=== PATIENT | female | born 1990 | race African-American/Black ===

== ENCOUNTER 2017-02-12 10:36 | Inpatient (IN) ==
[2017-02-12] MEDS ORDERED: ONDANSETRON 4 MG/2 ML VIAL IV PRN (10:44)
[2017-02-12] MEDS ORDERED: OXYTOCIN/LR 20 UNIT/1,000 ML BAG IV SCH (11:00)
[2017-02-12] MEDS ORDERED: LACTATED RINGERS 1,000 ML IV SCH ×2 (11:00→11:30)
[2017-02-12] MEDS: AMPICILLIN INJ 2,000 MG in SODIUM CHLORIDE 0.9% 100 ML IV SCH ×2 (11:07→22:28)
[2017-02-12 11:15] LABS: Basophils % 0.3 % (0.0-0.8); Eosinophils # 0.2 10*3/uL (0.0-0.87); Eosinophils % 1.2 % (0.00-10.9); Hematocrit 35.9 VOL% (35.7-47.0); Hemoglobin 12.5 GM/DL (12.0-16.0); Immature Granulocytes % 1.4 %; Immature Granulocytes Absolute 0.19 #; Lymphocytes % 14.6 % (21.3-54.2); Mean Corpuscular HGB Conc 34.8 GM/DL (32-36); Mean Corpuscular Hemoglobin 32 PG (27-34); Mean Corpuscular Volume 91.3 FL (87-102); Mean Platelet Volume 9.2 FL (9.6-12.0); Monocytes # 0.6 10*3/uL (0.11-0.8); Monocytes % 4.5 % (1.7-12.7); Neutrophils # 10.8 10*3/uL (1.4-7.4); Platelet Count 271 T/CUMM (130-400); Red Blood Count 3.93 MC/CUMM (3.8-5.5); Red Cell Distribution Width 13.3 % (9.3-17.3); White Blood Count 13.8 T/CUMM (4-12)
[2017-02-12] MEDS ORDERED: ONDANSETRON 4 MG/2 ML VIAL IV ONE (11:15)
[2017-02-12] MEDS ORDERED: ePHEDrine 50 MG/ML AMP IV PRN (11:15)
[2017-02-12] MEDS ORDERED: hydrOXYzine HCL 25 MG/1 ML VIAL IM PRN (11:15)
[2017-02-12] MEDS ORDERED: fentaNYL 2 MCG/ROPIV 0.2% EPID 150 ML EPIDURAL SCH (11:15)
[2017-02-12] MEDS ORDERED: CITRIC ACID/SODIUM CITRATE 30 ML UDCUP PO ONE (11:15)
[2017-02-12] MEDS ORDERED: diphenhydrAMINE 50 MG/1 ML VIAL IV PRN ×2 (11:15)
[2017-02-12] MEDS ORDERED: PROMETHAZINE 25 MG/1 ML VIAL IM ONE (11:15)
[2017-02-12] MEDS ORDERED: FAMOTIDINE 20 MG/2 ML VIAL IV ONE (11:15)
[2017-02-12] MEDS ORDERED: LACTATED RINGERS 1,000 ML IV ONE (11:26)
[2017-02-12] MEDS ORDERED: ONDANSETRON 4 MG/2 ML VIAL ONE (11:37)
[2017-02-12] MEDS ORDERED: LIDOCAINE 2% 5 ML VIAL ONE (11:37)
[2017-02-12 11:47] LABS: Albumin 2.9 G/DL (3.4-5.0); Bilirubin,Total 0.4 MG/DL (0.2-1.0); Calcium 8.9 MG/DL (8.5-10.1); Osmolality,Calculated 271.8 MOS/KG (273-304); Potassium 3.9 MMOL/L (3.5-5.1); Total Protein 6.6 G/DL (6.4-8.3)
[2017-02-12 14:07] LABS: Apearance,Urine CLEAR (Clear); Bilirubin,Urine Negative (Negative); Blood, Urine Small mg/dL (Negative); Glucose,Urine (UA) Negative (Negative); Ketones,Urine Negative (Negative); Nitrite,Urine Negative (Negative); Protein,Urine Negative; RBC,Urine <1 /HPF (0-4); Squamous Epithelial Cell,Urine Occasional /HPF (0-10); Urine Color Straw (Yellow); Urine Specific Gravity 1.008 (1.001-1.035); Urine Urobilinogen < 2.0 EU/DL (0.2-1.0); WBC,Urine 1 /HPF (0-6)
[2017-02-12 14:09] LABS: Cord Arterial Blood HCO3 16.2 MMOL/L
[2017-02-12 14:12] LABS: Cord Venous Blood HCO3 19.2 MMOL/L; Cord Venous Blood PCO2 49.5 MMHG; Cord Venous Blood PO2 33.7
--- NOTE | 2017-02-12 14:45 | Anesthesia Post-Op ---
Anesthesia Post OP - Post Ansesthetic Evaluation Patient seen in post op: Yes Resp: within normal limits CV: within normal limits Mental: within normal limits Temp: within normal limits Seqm-[id number]-Pdacfpasm: within normal limits Nausea and Vomiting: within normal limits Pain: within normal limits
[2017-02-12] MEDS ORDERED: MORPHINE 10 MG/10 ML VIAL ONE (14:48)
[2017-02-12] MEDS ORDERED: OXYTOCIN/LR 20 UNIT/1,000 ML BAG IV ONE ×2 (16:32→17:24)
--- NOTE | 2017-02-12 17:17 | Event Note ---
The pt was sent into the hospital in labor. AROM of clear fluid was performed. The infant started having some variables adn she progressed to 8 cms. Internal monitors were inserted, IUPC and FSE. The variables continued and at that point I decided to call an emergent . R/B/A/C were reviewed with the pt prior to the procedure and she was agreable. The pt was taken back for a due to nonreassuring tracing.
--- NOTE | 2017-02-12 17:21 | Operative Note ---
Date of procedure: 02/12/17 Pre-op diagnosis: IUP at 38 weeks, nonreasuring tracing Post-op diagnosis: same Procedure: emergency primary findings; Infant female, OP presentation , nuchal x 1, apgars 7 and 8, weight 5 pound 8 ounces normal uterus tubes and ovaries The patient presented to the hospital at 7 cm and progressed to 8 cm after having an epidural. Once the patient was placed on the monitor she was having a mild variables but as time went on the variables got deeper with each contraction and it that point it was decided to consent for an emergency C- section. Risks benefits alternatives and complications were reviewed with the patient the patient was amenable to the procedure. The patient was thus taken back to the operating room and epidural anesthesia was found to be adequate. Patient was prepped and draped in the usual sterile fashion. A Pfannenstiel skin incision was made with the scalpel and carried out to the underlying fascia. The fascia was incised in the midline and extended laterally with Velazquez scissors. The superior aspect of the fascial incision was dissected off the rectus muscle the same was done with the inferior aspect of the fascial incision. The rectus muscle was divided in the midline the peritoneum identified and entered sharply with Metzenbaum scissors extended superiorly and in fairly with good visualization of the bladder. The Kobe retractor was carefully introduced to the abdomen the vesicouterine peritoneum identified and entered sharply with Metzenbaum scissors extended laterally and the bladder flap was created digitally. Lower uterine segment was incised with a scalpel and extended laterally. The infant's head was noted to be OP presentation and even flex back some with careful maneuvers the infant's head was delivered atraumatically at the nuchal cord was reduced and the rest of the was then delivered the cord was clamped and cut and the was handed off to the waiting nursery team. The cord was collected to send off her gases. The placenta was then removed manually the uterus cleared of all clots and debris with a clean dry sponge. The lower uterine segment was repaired using 0 Vicryl in a running locked fashion with a second indicating layer to achieve excellent hemostasis. The Kobe retractor was then removed the ovaries and tubes were palpated and noted to be normal in the lower uterine segment noted to be hemostatic. The gutters were cleared of all clots and debris and copious irrigation was performed. Interceed was placed over the lower uterine segment in order to help to prevent adhesions. The peritoneum was reapproximated using 3-0 Vicryl in a running fashion. The muscle was reapproximated using 3-0 Vicryl in a vertical mattress interrupted fashion. The fascia was reapproximated using 0 Vicryl in a running fashion starting either angle and tying the middle. Subcutaneous fat was reapproximated using 3-0 Vicryl in a running fashion. The skin was reapproximated using Ensor but marck. Sponge lap and instrument counts were correct 3. Anesthesia: epidural Surgeon / Physician: Marilee Rowe Estimated blood loss: other (400) Urine output: 400 (clear) Specimens: other (placenta) Condition: stable Disposition: floor Results - Labs CBC & BMP: 02/12/17 10:49 02/12/17 10:49 Discharge Plan - Discharge Medications No Action Ranitidine Tab [Zantac Tab] 150 mg PO DAILY Vits #90/Iron Fum/FA [ Formula Tablet] 1 tablet PO DAILY - Follow Up or Referral - Forms/Instructions
[2017-02-12] MEDS ORDERED: MAGNESIUM HYDROXIDE SUSP 30 ML UDCUP PO PRN (17:24)
[2017-02-12] MEDS ORDERED: RHO(D) IMMUNE GLOBULIN 300 MCG SYRINGE IM ONE (17:24)
[2017-02-12] MEDS ORDERED: ACETAMINOPHEN 325 MG TABLET PO PRN (17:24)
[2017-02-12] MEDS ORDERED: SIMETHICONE CHEW 80 MG TABLET PO PRN (17:24)
[2017-02-12] MEDS: ALUMINUM/MAGNES/SIMETH MAX STR 30 ML UDCUP PO PRN (17:40)
[2017-02-12] MEDS ORDERED: diphenhydrAMINE 50 MG/1 ML VIAL ONE (18:16)
[2017-02-12] MEDS: diphenhydrAMINE 50 MG/1 ML VIAL IV PRN ×2 (18:25→18:35)
[2017-02-12] MEDS: DOCUSATE SODIUM 100 MG CAPSULE PO SCH (20:46)
[2017-02-13] MEDS: LACTATED RINGERS 1,000 ML IV SCH ×3 (01:30→09:53)
[2017-02-13 05:57] LABS: Basophils % 0.2 % (0.0-0.8); Eosinophils # 0.2 10*3/uL (0.0-0.87); Eosinophils % 1.2 % (0.00-10.9); Hematocrit 33.5 VOL% (35.7-47.0); Hemoglobin 11.7 GM/DL (12.0-16.0); Immature Granulocytes % 0.8 %; Immature Granulocytes Absolute 0.12 #; Lymphocytes # 1.6 10*3/uL (1.4-4.0); Lymphocytes % 11.2 % (21.3-54.2); Mean Corpuscular HGB Conc 34.9 GM/DL (32-36); Mean Corpuscular Hemoglobin 32 PG (27-34); Mean Corpuscular Volume 91.3 FL (87-102); Monocytes # 1.3 10*3/uL (0.11-0.8); Neutrophils # 11.2 10*3/uL (1.4-7.4); Neutrophils % 77.6 % (38.7-73.9); Platelet Count 221 T/CUMM (130-400); Red Blood Count 3.67 MC/CUMM (3.8-5.5); Red Cell Distribution Width 13.2 % (9.3-17.3); White Blood Count 14.5 T/CUMM (4-12)
[2017-02-13] MEDS: ALUMINUM/MAGNES/SIMETH MAX STR 30 ML UDCUP PO PRN ×2 (06:54→20:35)
[2017-02-13] MEDS: IBUPROFEN 800 MG TABLET PO PRN ×2 (06:54→19:07)
--- NOTE | 2017-02-13 09:27 | OB/GYN Progress Note ---
Assessment and Plan (1) Status post section Status: Acute Assessment and plan: POD#1 s/p emergent due to nonreassuring heart tracing. both mom and baby are doing well. continue routine postop and PP care Current Visit: Yes BAR BACK - PN: Subj Interval history: The pt is feeling well. Her pain and bleeding are under control. The baby is doing well also Exam BAR BACK - Constitutional Vitals: Vital Signs Temp Pulse Resp BP Pulse Ox 02/13/17 08:00 96.8 F L 94 H 20 115/69 94 L 02/13/17 04:00 97.1 F L 92 H 18 117/58 96 02/13/17 01:57 20 02/13/17 00:00 97 F L 85 20 104/54 95 02/12/17 22:00 20 02/12/17 20:00 97.9 F 89 18 122/65 96 02/12/17 17:59 99 H 20 125/81 95 02/12/17 17:29 87 20 121/68 96 02/12/17 17:00 98.9 F 87 18 108/73 98 02/12/17 12:00 103 H 18 111/73 98 02/12/17 10:44 97.6 F 93 H 18 124/80 98 General appearance: normal weight, no acute distress - Respiratory Respiratory exam: Absent: accessory muscle use - Cardiovascular Cardiovascular exam: Present: regular rate and rhythm - GI/Abdominal GI/Abdominal exam: Absent: guarding, tenderness, rebound - Neurological Exam Neurological exam: Present: alert, oriented X3 - Psychiatric Psychiatric exam: Present: normal affect, normal mood - Skin Skin exam: Present: normal color, warm Results - Labs CBC & BMP: 02/13/17 05:41 02/12/17 10:49
--- NOTE | 2017-02-13 09:27 | Discharge Summary ---
Hospital Course - Hospital Course Hospital Course: The pt was admitted at 38 weeks due to labor. She was 7 cm at the time of admission. She progressed to 8 cm but the tracing showed repetitive decelerations and she was taken back fo ran emergent . Specialty Discharge - Follow Up or Referrals Follow up with: Marilee Rowe MD [Physician] - 1 Week Discharge Plan - Discharge Data Disposition: Disch To Home/Self Care Condition at Discharge: Stable Discharge Diet: advance to your usual diet Activity: no lifting Hygiene: may shower Weight Bearing at Discharge: full weight bearing Driving: not until seen by doctor Contact your physician if you experience:: fever over 101, Difficulty voiding, Redness or swelling, Nausea/Vomiting, Shortness of breath, Bleeding, pain uncontrolled by pain medications - Discharge Medications No Action Ranitidine Tab [Zantac Tab] 150 mg PO DAILY Vits #90/Iron Fum/FA [ Formula Tablet] 1 tablet PO DAILY - Follow Up or Referral - Forms/Instructions Exam - Constitutional Vitals: Period Temp Pulse Resp BP Sys/Mcintyre Pulse Ox Last 24 Hr 96.8 F-98.9 F 85-103 18-20 104-125/54-81 94-98 Discharge Results Procedures and tests throughout hospitalization: Pending Orders 02/12/17 10:44 Urinalysis Routine Labs on day of discharge: Labs from last 24 hours 02/13/17 02/12/17 02/12/17 05:41 13:55 13:55 WBC 14.5 H RBC 3.67 L Hgb 11.7 L Hct 33.5 L MCV 91.3 MCH 32 MCHC 34.9 RDW 13.2 Plt Count 221 MPV 9.0 L Neut % (Auto) 77.6 H Lymph % (Auto) 11.2 L Bullock % (Auto) 9.0 Eos % (Auto) 1.2 Baso % (Auto) 0.2 Neut # (Auto) 11.2 H Lymph # (Auto) 1.6 Bullock # (Auto) 1.3 H Eos # (Auto) 0.2 Baso # (Auto) 0.0 Immature Gran % 0.8 Nucleated RBC % 0.0 Immature Gran # 0.12 Nucleated RBCs # 0.00 Cord ABG pH 7.096 L Cord ABG pCO2 86.6 Cord ABG HCO3 16.2 Cord ABG Total CO2 24.6 Cord ABG Base Excess -7.8 Cord VBG pH 7.264 Cord VBG pCO2 49.5 Cord VBG pO2 33.7 Cord VBG HCO3 19.2 Cord VBG Total CO2 19.3 Cord VBG Base Excess -5.5 Sodium Potassium Chloride Carbon Dioxide Anion Gap BUN Creatinine GFR Calculation BUN/Creatinine Ratio Glucose Calculated Osmolality Calcium Total Bilirubin AST ALT Alkaline Phosphatase Total Protein Albumin Globulin Albumin/Globulin Ratio Urine Color Urine Appearance Urine pH Ur Specific [place] Urine Protein Urine Glucose (UA) Urine Ketones Urine Blood Urine Nitrate Urine Bilirubin Urine Urobilinogen Urine Leukocytes Urine RBC Urine WBC Ur Squamous Epith Cells Ur Culture Indicated? Blood Type Antibody Screen 02/12/17 02/12/17 02/12/17 13:45 10:49 10:49 WBC RBC Hgb Hct MCV MCH MCHC RDW Plt Count MPV Neut % (Auto) Lymph % (Auto) Bullock % (Auto) Eos % (Auto) Baso % (Auto) Neut # (Auto) Lymph # (Auto) Bullock # (Auto) Eos # (Auto) Baso # (Auto) Immature Gran % Nucleated RBC % Immature Gran # Nucleated RBCs # Cord ABG pH Cord ABG pCO2 Cord ABG HCO3 Cord ABG Total CO2 Cord ABG Base Excess Cord VBG pH Cord VBG pCO2 Cord VBG pO2 Cord VBG HCO3 Cord VBG Total CO2 Cord VBG Base Excess Sodium 137 Potassium 3.9 Chloride 107 Carbon Dioxide 20 L Anion Gap 13.9 BUN 7 Creatinine 0.70 GFR Calculation 179 BUN/Creatinine Ratio 10.00 Glucose 109 H Calculated Osmolality 271.8 L Calcium 8.9 Total Bilirubin 0.40 AST 12 ALT 15 Alkaline Phosphatase 169 H Total Protein 6.6 Albumin 2.9 L Globulin 3.7 H Albumin/Globulin Ratio 0.7 L Urine Color Straw Urine Appearance Clear Urine pH 7.0 Ur Specific [place] 1.008 Urine Protein Negative Urine Glucose (UA) Negative Urine Ketones Negative Urine Blood Small Urine Nitrate Negative Urine Bilirubin Negative Urine Urobilinogen < 2.0 H Urine Leukocytes Negative Urine RBC <1 Urine WBC 1 Ur Squamous Epith Cells Occasional Ur Culture Indicated? Not indicated Blood Type A POSITIVE Antibody Screen Negative 02/12/17 10:49 WBC 13.8 H RBC 3.93 Hgb 12.5 Hct 35.9 MCV 91.3 MCH 32 MCHC 34.8 RDW 13.3 Plt Count 271 MPV 9.2 L Neut % (Auto) 78.0 H Lymph % (Auto) 14.6 L Bullock % (Auto) 4.5 Eos % (Auto) 1.2 Baso % (Auto) 0.3 Neut # (Auto) 10.8 H Lymph # (Auto) 2.0 Bullock # (Auto) 0.6 Eos # (Auto) 0.2 Baso # (Auto) 0.0 Immature Gran % 1.4 Nucleated RBC % 0.0 Immature Gran # 0.19 Nucleated RBCs # 0.00 Cord ABG pH Cord ABG pCO2 Cord ABG HCO3 Cord ABG Total CO2 Cord ABG Base Excess Cord VBG pH Cord VBG pCO2 Cord VBG pO2 Cord VBG HCO3 Cord VBG Total CO2 Cord VBG Base Excess Sodium Potassium Chloride Carbon Dioxide Anion Gap BUN Creatinine GFR Calculation BUN/Creatinine Ratio Glucose Calculated Osmolality Calcium Total Bilirubin AST ALT Alkaline Phosphatase Total Protein Albumin Globulin Albumin/Globulin Ratio Urine Color Urine Appearance Urine pH Ur Specific [place] Urine Protein Urine Glucose (UA) Urine Ketones Urine Blood Urine Nitrate Urine Bilirubin Urine Urobilinogen Urine Leukocytes Urine RBC Urine WBC Ur Squamous Epith Cells Ur Culture Indicated? Blood Type Antibody Screen DS: Provider Date of admission: 02/12/17 10:44 Primary care physician: . No PCP Attending physician on admission: Marilee Sagastume- Consults: 02/12/17 10:44 Consult to Anesthesiology [CONS] Routine Consulting Provider: Reason for Anesthesiology: Epidural Consult Comment: Epidural for pain managment 02/12/17 17:24 Consult to Tongue And Quarter Stitcher [CONS] Routine Consult Tongue And Quarter Stitcher: Breast Feeding Discharging clinician: Marilee Sagastume-
[2017-02-13] MEDS: MULTIVITAMIN (PRENATAL) TABLET PO SCH (09:52)
[2017-02-13] MEDS: DOCUSATE SODIUM 100 MG CAPSULE PO SCH ×2 (09:52→20:35)
[2017-02-14] MEDS: ALUMINUM/MAGNES/SIMETH MAX STR 30 ML UDCUP PO PRN (04:35)
[2017-02-14] MEDS: IBUPROFEN 800 MG TABLET PO PRN (06:15)
[2017-02-14 08:09] VITALS: BP 110/68
[2017-02-14] MEDS: DOCUSATE SODIUM 100 MG CAPSULE PO SCH (08:32)
[2017-02-14] MEDS: MULTIVITAMIN (PRENATAL) TABLET PO SCH (08:32)
[2017-02-14] MEDS ORDERED: DIPH/TET/ACEL PERT BOOSTER VACCINE 0.5 ML VIAL IM ONE (10:41)
--- NOTE | 2017-02-16 12:18 | Pathology Report from [facility] ---
[email or web address] ACCESSION # : [id number] PATIENT NAME : Kim Vital ORDERING DR : Marilee Clayton MD CLINICAL HX: Non reassuring FHT POST-OP DX: Same SPECIMEN INFO: Placenta GROSS DESCRIPTION: Received fresh labeled KIM VITAL & PLACENTA is a 452 gm placenta measuring 17.1 x 18.8 x 1.8 cm. The membranes are cifuentes and translucent. The umbilical cord is eccentrically inserted, contains three vessels and measures 40.1 cm. The surface is dark blue thorpe with areas of hemorrhage present measuring up to 3 cm. The maternal surface is moderately to markedly disrupted with a 5 cm partial rent present and scattered areas of fibrin and clotted blood are also identified. No gross abnormalities upon sectioning. Sections submitted A- membranes and cord, B- and maternal surfaces. DIAGNOSIS FOR KIM VITAL: PLACENTA, MEMBRANES, UMBILICAL CORD: Focal placental infarction, blood and fibrin clots. Tri-vessel umbilical cord, eccentrically inserted. Membranes with focal chronic inflammation and attached blood. COLLECTED DATE: 02/13/2017 [facility] REPORT DATE: 02/16/2017 ELECTRONICALLY SIGNED BY: Prasad Ahn M.D. 02/16/2017 - 10:31:08 [facility]
== END 2017-02-14 13:00 | disposition home or self-care (01) | DRG 766 ==
LOC: N.LDOUT 10:36 → N.LD 10:37 → N.OB 16:47
PROVIDERS: ADMIT Obstetrics & Gynecology; ATTEND Obstetrics & Gynecology
PROC: LDCSECT (ICD-10-PCS; 2017-02-12 13:45)